=== PATIENT | female | born 2000 | race Caucasian/White ===

== ENCOUNTER 2022-04-14 18:46 | Emergency (ER) | payer OTHER ==
[~2022-04-14] VITALS: Ht 154.9 cm; Wt 45.4 kg
[2022-04-14 19:13] LABS: APPEARANCE,URINE CLOUDY (CLEAR); BILIRUBIN,URINE 1 mg/dL (NEGATIVE); COLOR,URINE DARK-ORANGE (YELLOW); GLUCOSE, URINE (UA) NEGATIVE (NEGATIVE); KETONES,URINE 10 mg/dL (NEGATIVE); LEUKOCYTE ESTERASE ,URINE NEGATIVE Leu/uL (NEGATIVE); NITRATE,URINE 1+ (NEGATIVE); OCCULT BLOOD,URINE NEGATIVE (NEGATIVE); PH,URINE 5.5 (5.0-8.0); PROTEIN,URINE 20 mg/dL (NEGATIVE)
[2022-04-14 19:26] LABS: HEMATOCRIT 39.1 % (36-48); MEAN CORPUSCULAR HEMOGLOBIN 30.5 pg (27.0-33.0); MEAN CORPUSCULAR HGB CONC 33.5 g/dL (32.0-36.0); MEAN CORPUSCULAR VOLUME 90.9 fL (80-100); RED BLOOD CELL COUNT(AUTO) 4.3 MIL/uL (4.00-5.50); RED CELL DISTRIBUTION WIDTH 12.1 % (11.0-15.5); WHITE BLOOD COUNT (AUTO) 10.9 K/uL (4.8-10.8)
[2022-04-14 19:27] LABS: HCG,QUALITATIVE URINE NEGATIVE (NEGATIVE)
[2022-04-14 19:35] LABS: CREATININE 0.8 mg/dL (0.5-1.5); POTASSIUM 3.3 mmol/L (3.5-5.1)
[2022-04-14 19:38] LABS: BACTERIA,URINE RARE /HPF (None Seen); MUCUS,URINE MOD LPF (None Seen); SQUAMOUS EPITHELIAL CELL,UR MOD /HPF (0-2)
[2022-04-14 19:40] LABS: ALBUMIN 4.3 g/dL (3.5-5.0)
[2022-04-14] MEDS ORDERED: CEPH500B PO (19:58)
[2022-04-14] MEDS ORDERED: PHEN-847 PO (19:58)
[2022-04-14] MEDS ORDERED: CEFTRIAXONE 1G VIAL IM ONE (20:00)
[2022-04-14] MEDS ORDERED: PHENAZOPYRIDINE HCL 200 MG TABLET PO ONE (20:00)
[2022-04-14] MEDS ORDERED: IBUPROFEN 400 MG TABLET PO ONE (20:00)
[2022-04-14 20:11] VITALS: BP 109/61
== END 2022-04-14 20:06 | disposition home or self-care (01) ==
LOC: EDH 18:46
DX: N39.0 Urinary tract infection, site not specified (principal); Z79.1 Long term (current) use of non-steroidal anti-inflammatories (NSAID)
CPT/HCPCS: 99283; 80053; 85027; 87088; 81001; 81025; 36415; 96372; J0696

== ENCOUNTER 2022-11-09 14:12 | Emergency (ER) | payer OTHER ==
[~2022-11-09] VITALS: Ht 154.9 cm; Wt 47.6 kg
[~2022-11-09 14:12] MED LIST: CEPH500B PO; PHEN-847 PO
[2022-11-09 14:13] VITALS: BP 116/75; PULSE 88; RESP 20
[2022-11-09 16:46] LABS: ADD UA MICROSCOPIC YES; APPEARANCE,URINE TURBID (CLEAR); BILIRUBIN,URINE NEGATIVE (NEGATIVE); COLOR,URINE DARK-BROWN (YELLOW); GLUCOSE, URINE (UA) NEGATIVE (NEGATIVE); KETONES,URINE NEGATIVE (NEGATIVE); LEUKOCYTE ESTERASE ,URINE NEGATIVE Leu/uL (NEGATIVE); NITRATE,URINE NEGATIVE (NEGATIVE); OCCULT BLOOD,URINE NEGATIVE (NEGATIVE); PROTEIN,URINE 30 mg/dL (NEGATIVE); UROBILINOGEN,URINE 0.2 mg/dL (0.2-1.0)
[2022-11-09 16:47] LABS: BACTERIA,URINE RARE /HPF (None Seen); MUCUS,URINE MANY LPF (None Seen); OTHER CASTS, URINE 27 /LPF (None Seen); RBC,URINE 0-1 /HPF (0-1); SQUAMOUS EPITHELIAL CELL,UR MOD /HPF (0-2); UNCLASSIFIED CRYSTAL 14 /HPF (None Seen)
[2022-11-09 16:55] LABS: HCG,QUALITATIVE URINE NEGATIVE (NEGATIVE)
[2022-11-09] MEDS ORDERED: PHEN-847 PO (17:54)
[2022-11-09] MEDS ORDERED: NITR100C PO (17:54)
[2022-11-09] MEDS ORDERED: ONDA4TAB10 PO (18:19)
[2022-11-09] MEDS ORDERED: CEFTRIAXONE 1G VIAL IM ONE (18:31)
[2022-11-09] MEDS ORDERED: PHENAZOPYRIDINE HCL 200 MG TABLET PO ONE (18:32)
== END 2022-11-09 18:50 | disposition home or self-care (01) ==
LOC: EDH 14:12
DX: N39.0 Urinary tract infection, site not specified (principal); Z79.899 Other long term (current) drug therapy
CPT/HCPCS: 99283; 87088; 87797; 87486; 81001; 81025; 96372; J0696